=== PATIENT | female | born 2000 | race Two or more races ===

== ENCOUNTER 2021-04-23 16:19 | Emergency (ER) | payer MEDICAID, OTHER, SELFPAY ==
[~2021-04-23] VITALS: Ht 162.6 cm; Wt 60.5 kg
[2021-04-23] MEDS ORDERED: DEXAMETHASONE 4 MG TABLET PO ONE (20:00)
[2021-04-23] MEDS ORDERED: DEXAMETHASONE 4 MG TABLET ONE (22:11)
[2021-04-23 22:16] VITALS: BP 117/69
== END 2021-04-23 22:22 | disposition home or self-care (01) ==
LOC: ED 17:00
DX: J35.1 Hypertrophy of tonsils (principal)
CPT/HCPCS: 87081; 87880; 99283